=== PATIENT | female | born 1975 | race Caucasian/White ===

== ENCOUNTER 2019-03-26 10:37 | Outpatient (REF) | payer BC, SELFPAY ==
[2019-03-26 18:53] LABS: Iron 69 ug/dL (50-175)
[2019-03-26 18:55] LABS: HCT 39.8 % (36.0-46.0); HGB 12.7 g/dL (12.0-15.5); Mean Corp. HGB Concentration 31.9 g/dL (32.0-36.0); Mean Corpuscular Hemoglobin 29.9 pg (27.0-33.0); Mean Corpuscular Volume 93.6 fL (80-95); Mean Platelet Volume 9.9 fL (8.0-11.0); Platelet Count 250 x1000/uL (130-400); RBC 4.25 m/cumm (4.00-5.20); RBC Distribution Width 13.1 % (11.7-14.6); White Blood Cell Count 5.38 k/cumm (4.4-10.8)
[2019-03-26 19:20] LABS: Cholesterol 215 mg/dL (50-200); Ferritin 23 ng/mL (8-388); Folate 14.7 ng/mL (8.6-20.0); GGT 20 U/L (5-55); HDL Cholesterol 49 mg/dL (40-60); LDL CHOLESTEROL 143 mg/dL (<100); TSH 2.06 uIU/mL (0.358-3.74); Triglyceride 106 mg/dL (30-150); Vitamin B12 501 pg/mL (193-986)
[2019-03-26 20:44] LABS: ESR 20 MM/HR (0-20)
[2019-03-27 17:47] LABS: CRP, High Sensitivity 0.47 mg/L
== END 2019-03-26 10:57 ==
LOC: NCHCN 10:37
PROVIDERS: PCP Internal Medicine; Visit Provider Nurse Practitioner Family
DX: Z00.00 Encounter for general adult medical examination without abnormal findings (principal); F10.99 Alcohol use, unspecified with unspecified alcohol-induced disorder; N93.9 Abnormal uterine and vaginal bleeding, unspecified; M25.50 Pain in unspecified joint
CPT/HCPCS: 80061; 83721; 85027; 85652; 86141; 82607; 82728; 82746; 82977; 83540; 84443

== ENCOUNTER 2020-09-05 16:00 | Outpatient (REF) | payer BC, SELFPAY ==
--- NOTE | 2020-09-05 15:00 | PAPFT_PTH ---
PATIENT: Madhuri Garrett LOC: [facility] U#:[id number] AGE/SX: 44/F ROOM: RE09/05/[address]: LEILA Spencer : 1975 BED: DIS: 09/05/2020 SPEC #: [id number] RECD: 09/05/20 18:37 STATUS: SOUSacha REQ #: [id number] NEGAR: 09/05/20 15:[address]: Neelima Gary DEPT: [facility] Cytology RECD BY: Erica Paz ENTERED: 09/05/20 18:37 SP TYPE: PAPFT OTHR DR: Joey Perez Tissues: 1 - CX/ENDOCX FOR PAP SMEARS Procedures: PAP THIN PREP/UVM Screening HPV DNA PROBE Comments: [id number]
== END 2020-09-05 16:20 ==
LOC: LBN 16:00
PROVIDERS: PCP Internal Medicine; Visit Provider Nurse Practitioner Family
DX: Z12.4 Encounter for screening for malignant neoplasm of cervix (principal); Z11.51 Encounter for screening for human papillomavirus (HPV)
CPT/HCPCS: 88142; 87624

== ENCOUNTER 2020-09-12 01:16 | Outpatient (CLI) | payer BC, SELFPAY ==
--- NOTE | 2020-09-12 07:30 | DI.US_ITS ---
EXAM: US PELVIS TRANSVAGINAL CLINICAL HISTORY: Heavy periods - S/P endometrial ablation [id number],N92.0 TECHNIQUE: Transabdominal and transvaginal imaging was performed using standard protocol. COMPARISON: US PELVIS TRANSVAG from 06/20/2016 FINDINGS: KIDNEYS: Kidneys are symmetric in size. No evidence of renal calculi. No evidence of hydronephrosis. No renal mass or cyst identified. UTERUS: Anteverted. 8.1 x 4.7 x 5.3 cm Endometrium: 6 millimeters. Several endometrial cysts are noted. Myometrium: 2.8 centimeter anterior myometrial fibroid. scar. Cervix: Nabothian cysts. A small amount of fluid is seen in the cervical canal.. OVARIES: Right: Cyst or mass: None. Left: Status post left oophorectomy. . CUL-DE-SAC: Free fluid: None. IMPRESSION: 1. Small fibroid. Small endometrial cysts. 2. Unremarkable right ovary. DATA REPOSITORY:
== END 2020-09-12 01:36 ==
PROVIDERS: PCP Internal Medicine; Visit Provider Nurse Practitioner Family
DX: N92.0 Excessive and frequent menstruation with regular cycle (principal); D25.9 Leiomyoma of uterus, unspecified; N85.8 Other specified noninflammatory disorders of uterus
CPT/HCPCS: 76830; 76856

== ENCOUNTER 2020-09-26 02:19 | Outpatient (CLI) | payer BC, SELFPAY ==
--- NOTE | 2020-09-26 08:30 | DI.MAMMO_ITS ---
EXAM: MG MAMMO SCREENING CLINICAL HISTORY: screening,Z12.39 TECHNIQUE: Bilateral full field digital CC and MLO mammographic images were obtained with 3D tomosyn thesis and utilizing computer aided detection (CAD). COMPARISON: Available for comparison. FINDINGS: Masses/Architectural Distortion: There is an asymmetric density in the medial left breast on the CC v iew. This area should be further evaluated with a spot compression view and ultrasound. Microcalcifications: No suspicious pleomorphic-type are seen. Skin Thickening/Nipple Retraction: None. IMPRESSION: 1. New asymmetric density in the medial left breast on the CC view. 2. Spot compression view and ultrasound are recommended for further evaluation. BI-RADS Category 0 - Assessment Incomplete: Need additional imaging evaluation Breast Density - Category B - Scattered areas of fibroglandular density A negative radiographic report should not delay biopsy if a dominant or clinically suspicious mass is present. Up to ten percent of cancers are not identified on mammography. A negative report may reinforce clinical impression. Adenosis and dense breasts may obscure an underlying neoplasm. False positive reports average 6 to 10%. Patient will receive a letter notifying them of these results.
== END 2020-09-26 02:39 ==
PROVIDERS: PCP Internal Medicine; Visit Provider Nurse Practitioner Family
DX: Z12.31 Encounter for screening mammogram for malignant neoplasm of breast (principal); R92.8 Other abnormal and inconclusive findings on diagnostic imaging of breast
CPT/HCPCS: 77063; 77067

== ENCOUNTER 2020-09-28 01:16 | Outpatient (CLI) | payer BC, SELFPAY ==
--- NOTE | 2020-09-28 | DI.US_ITS ---
EXAM: MG MAMMO SCREEN CALL BACK UNI and U/S breast LT limited CLINICAL HISTORY: F/U MAMMO, LT ASYMMETRIC DENSITY. TECHNIQUE: Craniocaudal and mediolateral oblique Full Field Digital Mammography views of the left br east with Computer Aided Diagnosis followed by Tomosynthesis and left breast ultrasound. COMPARISON: No priors for comparison FINDINGS: Mammography/Tomosynthesis: Masses/Architectural Distortion: None seen. Microcalcifictions: No suspicious pleomorphic-type are seen. Skin Thickening/Nipple Retraction: None. Left breast US: Echotexture: Normal appearance of the glandular tissue. Shadowing: No suspicious foci. Cyst: None. Solid lesions: None seen. Ductal dilation: None. IMPRESSION: 1. No evidence of malignancy is noted. 2. A six-month follow-up left mammogram is recommended for re-evaluation. 3. The findings were discussed with the patient on the date of the examination. BI-RADS Category 3 - 6 month - Probably Benign Finding: Recommend follow-up mammography in 6 months Breast Density - Category B - Scattered areas of fibroglandular density A negative radiographic report should not delay biopsy if a dominant or clinically suspicious mass is present. Up to ten percent of cancers are not identified on mammography. A negative report may reinforce clinical impression. Adenosis and dense breasts may obscure an underlying neoplasm. False positive reports average 6 to 10%. Patient will receive a letter notifying them of these results.
== END 2020-09-28 01:36 ==
PROVIDERS: PCP Internal Medicine; Visit Provider Nurse Practitioner Family
DX: R92.8 Other abnormal and inconclusive findings on diagnostic imaging of breast (principal)
CPT/HCPCS: 76642; 77063; 77067

== ENCOUNTER 2020-10-24 02:30 | Outpatient (CLI) | payer BC, SELFPAY ==
[2020-10-26 07:44] LABS: COVID-19 RT-PCR Result NEGATIVE (Negative)
== END 2020-10-24 02:50 ==
PROVIDERS: PCP Internal Medicine; Visit Provider Obstetrics & Gynecology
DX: Z11.59 Encounter for screening for other viral diseases (principal); Z01.818 Encounter for other preprocedural examination
CPT/HCPCS: U0003

== ENCOUNTER 2020-10-24 03:44 | Outpatient (CLI) | payer BC, SELFPAY ==
[2020-10-24 13:44] LABS: HCT 38.9 % (36.0-46.0); HGB 12.5 g/dL (11.2-15.7); MCH 30.9 pg (27.0-33.0); MCHC 32.1 % (32.0-36.0); MCV 96.3 fL (80-95); MPV 9.2 fL (8.0-11.0); Platelet Count 256 10^3/uL (130-400); RBC 4.04 10^6/uL (3.93-5.22); RDW 12.6 % (11.7-14.6); WBC 6.63 10^3/uL (4.4-10.8)
== END 2020-10-24 04:04 ==
PROVIDERS: PCP Internal Medicine; Visit Provider Obstetrics & Gynecology
DX: N92.0 Excessive and frequent menstruation with regular cycle (principal); Z01.818 Encounter for other preprocedural examination; Z01.812 Encounter for preprocedural laboratory examination
CPT/HCPCS: 36415; 85027; 86850; 86900; 86901

== ENCOUNTER 2020-10-27 11:12 | Observation (INO) | payer BC, SELFPAY ==
[2020-10-27] VITALS (15 sets, daily range): BP systolic 84–115; BP diastolic 52–75; PULSE 56–92; RESP 11–20; TEMP 36.4–36.6; O2SAT 95–100
[2020-10-27] MEDS: Lactated Ringers 1,000 ML 125 ML IV ×2 (06:47→12:19)
[2020-10-27] MEDS: ceFAZolin 2 GM/50 ML BAG IVPB (07:56)
[2020-10-27] MEDS: Bupivacaine 0.25% Pres-Free 30 ML VIAL (09:06)
--- NOTE | 2020-10-27 10:24 | UTER_PTH ---
PATIENT: Madhuri Garrett LOC: [facility] U#:[id number] AGE/SX: 45/F ROOM: OBS.306 RE10/27/[address]: Sammie Lewis : 1975 BED: A DIS: 10/28/2020 SPEC #: [id number] RECD: 10/27/20 12:29 STATUS: TIGIST REQ #: [id number] NEGAR: 10/27/20 10:[address]: Sammie Lewis DEPT: Surgical Specimen RECD BY: Erica Paz ENTERED: 10/27/20 12:30 SP TYPE: UTER OTHR DR: Joey Perez Tissues: 1 - UTERUS W OR W/O OVARIES(NOT TUMOR/PROLAPSE) Procedures: GROSS AND MICRO LEVEL 5 Comments: [id number]
--- NOTE | 2020-10-27 11:40 | ROE_ITS ---
Date of service: 10/27/20 Time of Service: 11:40 Operative Note Operative Note DATE OF PROCEDURE: 10/27/20 PRE-OP DIAGNOSIS: abnormal uterine bleeding POST-OP DIAGNOSIS: same PROCEDURE: Laparoscopic assisted vaginal hysterectomy, right salpingectomy and bladder cystoscopy SURGEON: Sammie Lewis STAFFING ANALYST: Gale Carreon ANESTHESIA: GETA and spinal ESTIMATED BLOOD LOSS: 200 PATHOLOGY: other (uterus, cervix and R fallopian tube to pathology) COMPLICATIONS: None Patient was transported to: PACU Patient's condition: stable Indications: 44-year-old female with hx of abnormal uterine bleeding not responsive to previous medical and surgical measures. Pt had an unsuccessful endometrial ablation in 2012 and has required hormonal control of heavy regular menstruation. Findings: Uterus mobile. Pt had prior bilateral tubal ligation and absent left ovary and the majority of her left fallopian tube. R ovary normal in appearance. Upper abdomen, appendix and culdesac normal. Procedure Description: Patient was taken to the operating room where she was placed in the sitting position and spinal anesthesia was administered without difficulty. She was then placed in the dorsal supine position and general endotracheal anesthesia was administered. She was then placed in the dorsal lithotomy position in [facility] stirrups with SCDs in place. After being prepped and draped in the usual sterile fashion a surgical timeout was performed. She received 2 g of Ancef prior to skin incision. Durant catheter was placed to gravity drainage. A bivalve speculum was placed in the vagina the anterior lip of the cervix was grasped with a single-tooth tenaculum and a uterine manipulator was introduced into the uterus through the cervix and left in place. Attention was then turned to the patient's abdomen. The inferior umbilicus was infiltrated with quarter percent Marcaine without epinephrine. A scalpel was then used to make an vertical incision in the vertical fold. Two penetrating towel clips were used to tent up the skin and through the periumbilical incision a Veres needle was introduced into the abdomen and intra-abdominal placement confirmed by a drop in the intra-abdominal pressure. Once a pneumoperitoneum was established a 12 mm Visiport was placed under direct visualization and intra-abdominal placement confirmed by use of the laparoscope. Patient was then placed in Trendelenburg position. At two sites approximately 6 cm diagonally from the umbilical incision the skin was infiltrated with quarter percent Marcaine without epinephrine, incised with a scalpel and two 5 mm lower ports were placed under direct visualization. After careful inspection of the pelvis and determining that the course of both ureters were distant from the operative site a LigaSure electrocautery device was used to sequentally clamp, cauterize and incise the remnant of the fimbria of the left fallopian tube from from the pelvic side wall to which it was attatched. It was delivered through port. The left broad ligament was then sequentially clamped, cauterized and the both the left round ligament and ovarian suspensory ligament were transected and the pedicles noted to be hemostatic. The insertion of the left uterine artery/venous complex into the left lower uterine segment was clamped and cauterized in 3 contiguous locations. The Ligasure device was then used to incise the vesico-uterine peritoneum off of the lower uterine segment and retract the bladder away from the lower uterine segment. Attention was then turned to the fimbriated end of the right fallopian tube which was grasped, sequentially clamped, cauterized and transected. The right round ligament which was clamped, cauterized and transected with the Ligasure device. This allowed access to the ovarian suspensory ligament and remaining broad ligament which were clamped, cauterized and transected in a sequential fashion. The uterine vessel complex insertions at the lower uterine segement were easily cauterized and the vesicouterine peritoneum was incised across the lower uterine segment and the bladder flap dissected off of the the lower uterine segement. All pedicle sights were inspected and noted to be hemostatic. Decision was made to proceed with the vaginal portion of the case. Laparoscopic instruments were removed from the ports , the pneumoperitoneum was reduced, and the area was covered with sterile drape. A weighted vaginal speculum was placed in the vagina and the anterior posterior lips of the cervix were grasped with Avtar clamps. The body of the cervix was infiltrated with 1% lidocaine with dilute Epinphrine The epithelium of the cervix was incised in a circumferential fashion using Bovie electrocautery. The posterior cul-de-sac was entered sharply and through the incision a long billed weighted speculum was placed. The left and right uterosacral ligament complexes were clamped,transected, and suture-ligated which was held long. This allowed sufficient mobilization of the vesicouterine fascia to identify a tissue plane and enter the anterior cul-de-sac sharply. Through this incision a curved Jana retractor was inserted and used to retract bladder away from the operative field. The remaining right and left broad ligament attatchments were sequentially clamped, cauterized, and transected and the specimen was delivered and passed off of the operative field. The peritoneum was reapproximated with a pursestring suture using 2-0 Vicryl and the vaginal cuff was reapproximated in a vertical fashion with a running suture of 0 Vicryl with care taken to reapproximate the uterosacral ligament complex to the vaginal epithelium with the previously placed 0 Vicryl sutures. Bladder cystoscopy was performed and brisk efflux of urine was observed from each of the ureteral orifices. The Durant catheter was reinserted to gravity drainage. Instruments removed from the vagina and attention was again turned to the abdomen where a pneumoperitoneum was reestablished and the pelvis inspected using the laparoscope. The vaginal cuff was intact and hemostatic as were the other pedicles. The instruments were removed from the port sites, the pneumoperitoneum deflated and the ports removed. The fascia of the periumbilical skin incision was closed with interrupted suture of 0 Vicryl. The skin of the port site incisions were reapproximated with a subcuticular closure of 4-0 Vicry and and covered with skin glue. Patient was placed in the dorsal supine position awakened extubated and transported recovery area in stable condition. All sponge lap needle counts correct x2.
[2020-10-27] MEDS: diphenhydrAMINE 50 MG/ML VIAL 12.5 MG IVP (12:18)
[2020-10-27] MEDS: NALBUPHINE 5 MG in Normal Saline 50 ML 100 MG IVPB ×3 (13:45→21:53)
[2020-10-27] MEDS: Normal Saline Flush 10 ML SYR IV (15:58)
[2020-10-27] MEDS: Ketorolac 30 MG/ML VIAL IVP ×2 (15:59→21:45)
[2020-10-27] MEDS: Docusate Sodium 100 MG CAP PO (21:45)
[2020-10-28] MEDS: Lactated Ringers 1,000 ML 125 ML IV (00:03)
[2020-10-28 00:11] VITALS: BP 109/56; PULSE 64; RESP 18; TEMP 36.6
[2020-10-28] MEDS: diphenhydrAMINE 25 MG CAP PO (03:30)
[2020-10-28] MEDS: Ketorolac 30 MG/ML VIAL IVP (03:30)
[2020-10-28] MEDS: NALBUPHINE 5 MG in Normal Saline 50 ML 100 MG IVPB (03:31)
[2020-10-28] MEDS: Normal Saline Flush 10 ML SYR IV (03:37)
[2020-10-28 03:52] VITALS: BP 104/64; PULSE 58; RESP 16; TEMP 36.3; O2SAT 93
[2020-10-28 07:11] VITALS: BP 93/54; PULSE 72; RESP 16; TEMP 36.6; O2SAT 93
[2020-10-28] MEDS: Docusate Sodium 100 MG CAP PO (08:13)
[2020-10-28] MEDS: Acetaminophen 325 MG TAB 650 MG PO (09:03)
[2020-10-28] MEDS: Ibuprofen 600 MG TAB PO (09:34)
[2020-10-28 11:34] VITALS: BP 103/63; PULSE 61; RESP 18; TEMP 36.7; O2SAT 97
--- NOTE | 2020-10-28 12:53 | DSE_ITS ---
Date of service: 10/28/20 Time of Service: 12:53 DS: Diagnosis Discharge Diagnosis (1) Menorrhagia: Status: Acute (2) History of laparoscopic-assisted vaginal hysterectomy: Status: Acute Discharge Plan Disposition Patient Disposition: HOME Condition: Improving Discharge Details Reason For Visit: LAPAROSCOPIC VAGINAL HYSTERECTOMY Admit Date/Time: 10/27/20 11:12 Admit Provider: Sammie Lewis Attending Provider: Sammie Lewis Primary Care Provider: Joey Perez [facility] Course Hospital Course: Patient admitted the day of surgery and underwent the above stated procedure. She was discharged on POD 1 tolerating a regular diet, voiding without difficulty and tolerating oral pain medications. Pt will follow up for 2 week postop check in 2 weeks. Final path pending at the time of this dictation. Home Meds and New Rx's Prescriptions: No Action turmeric 400 mg capsule 400 mg PO DAILY RF: 0 multivitamin [Daily Multi-Vitamin] Tablet 1 tab PO DAILY RF: 0 fluconazole [Diflucan] 150 mg tablet 150 mg PO ONCE Qty: 2 RF: 2 ascorbic acid-elderberry fruit [Airborne (elderberry)] 100-50 mg tablet,chew able 1 tab PO DAILY RF: 0 Elderberry 200 mg Capsule 200 mg PO DAILY RF: 0 Discharge Instructions Additional Instructions: make an appointment for a 2 week post op visit with Dr. Lewis. Activity:: Activity as Tolerated Equipment/Supplies:: No Equipment Needed Diet:: As Tolerated Discharge Orders Discharge Orders: Discharge Order (Routine); Ordered 10/28/20 Ordered By: Sammie Lewis DS: Summary Status at Discharge Functional status at discharge: independent ambulation Overall status at discharge: patient is progressing back to baseline Mental Status: mental status grossly normal Speech and Movement: speech and movement normal Mood: congruent mood Affect: normal affect Exam Const General: no acute distress (has been taken NSAIDs and Acetaminophen for pain relief. ) Nutritional Appearance: average body habitus and overweight Orientation: alert, awake and oriented x3 Neck Neck: normal visual inspection Resp Effort & Inspection: normal respiratory effort Auscultation: clear to auscultation bilaterally Cardio Rate: regular rate Rhythm: regular rhythm GI Inspection: scar (Well approximated no induration skin glue in place) Palpation: soft, no masses and nontender General: deferred Skin General skin exam: no rashes or lesions noted Extrem General: normal to inspection and full ROM Psych Appearance: grossly normal Mental Status: mental status grossly normal Speech and Movement: speech and movement normal Mood: congruent mood Affect: normal affect DS: Data Vitals/I&O Vitals and I&O: Vital Signs Temperature 98.1 F 10/28/20 11:34 Temperature Source Oral 10/28/20 11:34 Pulse 61 10/28/20 11:34 Pulse Rhythm Regular 10/28/20 07:20 Respiratory Rate 18 10/28/20 11:34 Respiratory Effort 10/28/20 07:20 Respiratory Depth Normal 10/28/20 07:20 Respiratory Pattern Normal 10/28/20 07:20 Blood Pressure 103/63 10/28/20 11:34 Pulse Oximetry 97 10/28/20 11:34 Respiratory End-tidal CO2 36 10/27/20 10:57 Oxygen Delivery Method Room Air 10/28/20 11:34 Oxygen Flow Rate 0 10/28/20 11:34 Pain Level 1 10/28/20 11:34 Comment 10/28/20 07:11 Intake & Output 10/27/20 10/28/20 10/28/20 23:59 11:59 23:59 Intake Total 3699.833 / 3766.500 1980.5 / 3220.5 1240 / 3220.5 Output Total 1750 / 1750 900 / 900 Balance 1949.833 / 2016.500 1080.5 / 2320.5 1240 / 2320.5 Intake: IV 2299.833 / 2366.500 1070.5 / 2070.5 1000 / 2070.5 Oral 1400 / 1400 910 / 1150 240 / 1150 Output: Urine 1750 / 1750 900 / 900 Other: Urine Color Indigo Green Urine Appearance Clear Clots Urine Odor None Normal Comment scattered clots mixed with urine in hat. Pt reports no difficulty voiding. First void after pedraza removal. Voiding Methods Indwelling Catheter Toilet [facility] Medical History GERD (gastroesophageal reflux disease) Menorrhagia After of 2nd child. No relief with OCPs. Declines Mirena. Surgical History (Updated 10/28/20 @ 12:55 by Sammie Lewis MD) section Endometrial Ablation (~2012) History of laparoscopic-assisted vaginal hysterectomy 10/27/20. with L salpingecomy. L ovary conserved. Ligation of fallopian tube Oophrectomy, Left Family History Grandfather Colon cancer paternal Father Heart disease Grandfather No problems noted. Grandmother Breast cancer Maternal Maternal Uncle Collins syndrome paternal Grandfather No problems noted. Social History Smoking/Tobacco Use Status: Current-Occasional Tobacco Type: cigarettes Smoking risk assessment performed?: Yes Alcohol Intake: current Alcohol Intake frequency: a few times a week Alcohol type: beer and wine Drug use: Occasionally Substance use type: marijuana Do you feel safe at home: Yes Do you feel safe in your relationship?: Yes
--- NOTE | 2020-10-28 13:22 | NUR.NOTE ---
Nursing Note: 10/28/20 1322 Pt c/o blurred vision up close, no headache, reported to MD. Scopolomine patch removed per MD. Pt in agreement with plan of care.
== END 2020-10-28 13:30 | disposition home or self-care (01) ==
LOC: OBS 11:29
PROVIDERS: Admitting Provider Obstetrics & Gynecology Gynecology; PCP Internal Medicine; Visit Provider Obstetrics & Gynecology Gynecology
PROC: 0UT9FZZ Resection of Uterus, Via Natural or Artificial Opening With Percutaneous Endoscopic Assistance (ICD-10-PCS; CPT 58552; principal; 2020-10-27 07:30)
DX: D25.1 Intramural leiomyoma of uterus (principal); N92.0 Excessive and frequent menstruation with regular cycle; N72 Inflammatory disease of cervix uteri
CPT/HCPCS: 58552; 52000; 96360; 96361; NC; 88307; G0378; J0690; J1100; J1200; J1885; J2001; J2250; J2405; J2704; J3010; J3490

== ENCOUNTER 2020-11-10 10:40 | Outpatient (CLI) | payer BC, SELFPAY ==
--- NOTE | 2020-11-10 08:15 | DI.CT_ITS ---
EXAM: CT ABDOMEN PELVIS W CLINICAL HISTORY: persistent fever postop, s/p hysterectomy, Z90.710, R50.82. TECHNIQUE: Imaging Protocol: Axial computed tomography images with coronal and sagittal reformatted images were created and reviewed CONTRAST MATERIAL: Intravenous: Omnipaque 100cc Oral: Yes COMPARISON: No exams were available for comparison FINDINGS: VISUALIZED LUNG BASES: No nodules nor pleural effusions evident. ABDOMEN: There is no ascites. LIVER: There are no obvious focal hepatic lesions evident . GALLBLADDER/BILIARY: Subtle density gallbladder lumen noted, possibly noncalcified gallstone. There also appears to be mild edema of the fundus of the gallbladder. The CBD is not dilated. PANCREAS: No evidence of pancreatic mass nor dilatation of the pancreatic duct. SPLEEN: Spleen size is upper normal. No obvious splenic lesions. Splenic and portal veins are paten t. ADRENALS: There are no significant adrenal masses. KIDNEYS: No calculi nor hydronephrosis. No solid renal masses. No cysts evident. ABDOMINAL AORTA: Abdominal aorta is not enlarged and there is no uvodmqrxgfxkqqo-tiax-gnosnp adenopat hy. ABDOMINAL WALL/GI: No evidence of significant anterior abdominal wall hernia. No bowel obstruction. PELVIS: GI: No evidence of appendicitis.No evidence of sigmoid diverticulitis. LYMPH NODES: There is no intrapelvic nor inguinal adenopathy. REPRODUCTIVE: Uterus is surgically absent. There is an abnormal fluid collection in the pelvis, both central and left-sided. This measures appr oximately 6.5 centimetres wide by 2.3 centimetres AP by 5 centimetres cephalocaudal. Consistent with an abscess. Does not contain gas. It sits on top of the right side of the urinary bladder. There is no gas within the urinary bladder to suggest fistulous communication. In the central pelvis there is a separate adjacent finding measuring 3.5 centimeters wide by 2.3 centimetres AP by 2.2 centimetr es cephalocaudal, probably hematoma. Does not exhibit enhancing rim. Nevertheless, this may be a se parate adjacent abscess. URINARY BLADDER: No calculi nor obvious masses evident no gas therein. OSSEOUS: No significant osseous lesions. IMPRESSION: 1. Uterus is surgically absent. 2. There is a rim enhancing fluid collection in the central-left side of the pelvis, measuring 6.5 ce ntimeters wide by 2.3 centimeters AP x 5 centimetres cephalocaudal, having the appearance of an absce ss. A 2nd finding adjacent to this is also noted measuring 3.5 x 2.3 x 2.2 centimetres and not perip herally enhancing. This may represent hematoma versus developing abscess. 3. No evidence of obvious fistulous communication to the urinary bladder. RADIATION DOSE DELIVERED: 1,005.07mGy.cm Total DLP DATA REPOSITORY: All CT scans at this facility are submitted to the National Radiology Data Registry (NRDR) Dose Index Registry (DIR) with the [employer] (A[employer]). RADIATION OPTIMIZATION: All CT scans at this facility use at least one of these dose optimization te chniques: automated exposure control; mA and/or kV adjustment per patient size (includes targeted exa ms where dose is matched to clinical indication); or iterative reconstruction.
[2020-11-10 12:39] LABS: Abs Immature Grans 0.09 10^3/uL (0.0-0.06); Absolute Basophil Count 0.01 10^3/uL (0.0-0.2); Absolute Eosinophil Count 0.07 10^3/uL (0.0-0.7); Absolute Lymphocyte Count 1.34 10^3/uL (1.2-3.4); Absolute Monocyte Count 0.55 10^3/uL (0.1-0.8); Basophils % 0.1; Eosinophils % 0.8; HCT 29.2 % (36.0-46.0); HGB 9.2 g/dL (11.2-15.7); Lymphocytes % 15.1; MCHC 31.5 % (32.0-36.0); MCV 95.1 fL (80-95); MPV 8.6 fL (8.0-11.0); Monocytes % 6.2; Neutrophils % 76.8; Nucleated RBC 0 %; Platelet Count 432 10^3/uL (130-400); RBC 3.07 10^6/uL (3.93-5.22); RDW 12.3 % (11.7-14.6); WBC 8.86 10^3/uL (4.4-10.8)
[2020-11-10] MEDS: Omnipaque 350 MG/ML 50 ML BTL IJ (12:49)
[2020-11-10] MEDS: Breeza Beverage 473 ML BTL PO ×2 (12:50)
[2020-11-10 12:52] LABS: ALT 20 U/L (14-59); AST 13 U/L (15-37); Alkaline Phosphatase 98 U/L (46-116); Anion Gap 9.2 mmol/L (3-11); BUN 14 mg/dL (7-18); Bilirubin, Total 0.3 mg/dL (0.2-1.0); CO2 26.8 mmol/L (21.0-32.0); CREATININE 0.86 mg/dL (0.55-1.02); Calcium 8.8 mg/dL (8.5-10.1); Chloride 101 mmol/L (98-107); Glucose 102 mg/dL (74-106); Potassium 3.8 mmol/L (3.5-5.1); Sodium 137 mmol/L (136-145); Total Protein 7.2 g/dL (6.4-8.2)
[2020-11-10] MEDS: Normal Saline - Diluent 50 ML VIAL IV (14:01)
[2020-11-10] MEDS: Omnipaque 350 MG/ML 100 ML BTL IJ (14:01)
[2020-11-10] MEDS: Normal Saline Flush 10 ML SYR IVP (14:02)
== END 2020-11-10 11:00 ==
PROVIDERS: PCP Internal Medicine; Visit Provider Obstetrics & Gynecology Gynecology
DX: R50.82 Postprocedural fever (principal); Z90.710 Acquired absence of both cervix and uterus
CPT/HCPCS: 80053; 74177; 85025; J3490; Q9967

== ENCOUNTER 2021-06-05 07:08 | Day surgery (SDC) | payer BC, SELFPAY ==
--- NOTE | 2021-06-05 06:27 | W.COLOREPORT ---
Date of service: 06/05/21 Time of Service: 08:25 Colonoscopy Report Date of procedure: 06/05/21 Pre-op diagnosis general: Colon Cancer Screening Post-op diagnosis procedure note: other (sigmoid polyp) Procedure: Colonoscopy with polypectomy Surgeon: Dorinda Barroso Anesthesia Type: General:No Airway (ASA 2/ Lashon Booth CRNA) Estimated blood loss (mL): 2 Pathology: other (sigmoid polyp) Complications: None Disposition: same day Indications: The patient is here for Colonoscopy pre-op.She has family history of colon cancer in her paternal grandfather and numerous family members on her fathers side including her father have had numerous polyps. She has not had any bowel habit changes. -Discussed colonoscopy bowel prep as well as the procedure. Discussed possible complications of the procedure to include bleeding, pain, perforation, missed small lesion/polyp, sore throat, aspiration and adverse reaction to the medications. Questions were answered to patient?s satisfaction. No guarantees were implied or given. Prep: Miralax/Dulcolax Procedure Start Time: :25 Procedure End Time: 08:45 Retraction Time: 15 minutes Findings: One small <5 mm polyp Procedure Description: After informed consent was obtained the patient was taken to the procedure room and placed in a left decubitous position. Monitors were applied and a time out was done. The patients name, date of , procedure, allergies to medications and metal in their body was reviewed. The patient was then sedated. Once sedated and comfortable a rectal exam was done. External exam was normal. Internal exam revealed a normal sphincter tone and no palpable masses. The scope was then introduced and retro-flexed. No internal hemorrhoids, polyps or masses were identified on retro-flexion. The scope was then advanced to the cecum without difficulty. The ileocecal vlave and appendiceal orifice were identified. The prep was adequate. The scope was then slowly retracted over 15 minutes back into the rectum. Polyps were removed with cold forceps in the sigmoid colon. There was no diverticulosis noted. The scope was removed and the patient was woken up and taken back to Same day surgery in stable condition. The patient tolerated the procedure well and there were no immediate complications. Follow up: The patient should follow up in 5-10 years unless they develop changes in bowel habits or other new gastrointestinal complaints.
--- NOTE | 2021-06-05 06:28 | W.PM.DSUDISC ---
Discharge Plan Disposition Patient Disposition: HOME Condition: Good Discharge Details Reason For Visit: Colonoscopy Attending Provider: Dorinda Barroso Primary Care Provider: Joey Perez Home Meds and New Rx's Prescriptions: Continued turmeric 400 mg capsule 400 mg PO DAILY RF: 0 multivitamin [Daily Multi-Vitamin] Tablet 1 tab PO DAILY RF: 0 ascorbic acid-elderberry fruit [Airborne (elderberry)] 100-50 mg tablet,chewable 1 tab PO DAILY RF: 0 elderberry fruit 200 mg Capsule 200 mg PO DAILY RF: 0 Discharge Instructions Additional Instructions: Findings: one very small polyp Follow up: depends on the pathology results. You will receive a letter in the mail in about 10 days Please call if you develop: fevers >101.5 Nausea or Vomiting Abdominal pain that is not transient Rectal bleeding that is more then a tbsp A hard abdomen and inability to pass gas DAY SURGERY UNIT POST ENDOSCOPY INSTRUCTIONS Instructions for everyone who is given Anesthesia: For your safety, please do the following for the next 24 Hours: a. Do not drive or operate dangerous equipment b. Do not drink alcohol beverages or use any recreational drugs for the first 24 hours or while taking pain medications. The medications in your body may have a reaction that can be dangerous. c. Do not make any important decisions or sign any important papers 1. Generally there are no restrictions on your activity after a day or so has gone by, but you may feel a bit fatigued for a few days. 2. After you arrive home you may have a light meal and return to a normal diet as you can tolerate it without feeling sick to your stomach. 3. After surgery, you may feel pain or discomfort. This should be only transient, but if it persists please contact your doctor. 4. If there are any questions regarding the findings of your procedure, please feel free to contact your doctor. 6. If you are unable to contact your doctor with a problem, contact the hospital at [phone]. 7. Continue all your regular medications unless directed otherwise. I understand the above instructions and have no questions. Signature of Patient or Responsible Adult Escort Date/Time Name of Responsible Adult Escort Signature of Nurse Date/Time Activity:: Activity as Tolerated Diet:: As Tolerated Discharge Orders Discharge Orders: Discharge Order (Routine); Ordered 06/05/21 Ordered By: Dorinda Barroso
[2021-06-05 07:21] VITALS: BP 114/73; PULSE 60; RESP 17; TEMP 36.4; O2SAT 98
--- NOTE | 2021-06-05 07:44 | W.ANESPRE ---
General Info Date of Service Date Performed: 06/05/21 Height: 5 ft 5 in Weight: 80 kg Body Mass Index (BMI): 29.3 Surgical Procedure: Operation Date: 06/05/21 08:20 Proposed Procedures Side Surgeon p Colonoscopy Dorinda Barroso MD Meds Allergies and Home Medications Allergies Allergy/AdvReac Type Severity Reaction Status Date / Time No Known Allergies Allergy Verified 06/05/21 07:18 Home Medication Medication Instructions Recorded multivitamin 1 tab PO DAILY 09/05/20 turmeric 400 mg capsule 400 mg PO DAILY 09/05/20 ascorbic acid 100 mg-elderberry 1 tab PO DAILY 10/13/20 fruit 50 mg chewable tablet elderberry fruit [Elderberry] 200 mg PO DAILY 10/27/20 Current Visit Medications: Current Medications Generic Name Dose Route Start Last Admin Trade Name Freq PRN Reason Stop Dose Admin Hyoscyamine Sulfate 0.125 mg 06/05/21 06:29 Hyoscyamine 0.125 Mg Sl/Oral/Chew SL DIRECTED PRN Ringer's Solution 1,000 mls @ 80 mls/hr 06/05/21 06:00 IV 06/05/21 23:59 [facility] IV Miscellaneous Supplies 1 each 06/05/21 06:00 Iv Access IV 06/05/21 23:59 DIRECTED TRINI Ondansetron HCl 4 mg 06/05/21 06:29 Ondansetron 4 Mg/2 Ml Vial IVP Q4H PRN PRN Nausea / Vomiting Sodium Chloride 0 ml 06/05/21 06:00 Normal Saline Flush 10 Ml Syr IV 06/05/21 23:59 PRN PRN Sodium Chloride 0 ml 06/05/21 06:00 Normal Saline 10 Ml Vial IJ 06/05/21 23:59 DIRECTED PRN Sterile Water 0 ml 06/05/21 06:00 Water,Injection,Sterile 10 Ml Vial IJ 06/05/21 23:59 DIRECTED PRN PFSH Active Problems Active Problems: Problem Status Onset Code Encounter for change or removal of drains Z48.03 Pelvic abscess in female N73.9 Postsurgical fever R50.82 History of laparoscopic-assisted vaginal hysterectomy Z90.710 Abnormal mammogram of left breast R92.8 Menorrhagia N92.0 Medical History Medical History GERD (gastroesophageal reflux disease) Menorrhagia After of 1nd child. No relief with OCPs. Declines Mirena. Pelvic abscess in female Postsurgical fever Surgical History Surgical History section Endometrial Ablation (~2012) History of laparoscopic-assisted vaginal hysterectomy 10/27/20. with L salpingecomy. L ovary conserved. Ligation of fallopian tube Oophrectomy, Left Tobacco Smoking/Tobacco Use Status: Former Tobacco Use Alcohol Alcohol Intake: current Alcohol intake frequency: a few times a week Alcohol type: beer and wine Substance Use Substance use: Occasionally Substance use type: marijuana Vital Signs and Lab Results Vital Signs Most Recent Vital Signs in EMR: Most Recent Vital Signs Temp Pulse Resp BP Pulse Ox 36.4 C L 60 17 114/73 98 06/05/21 07:21 06/05/21 07:21 06/05/21 07:21 06/05/21 07:21 06/05/21 07:21 Lab Results Blood Type / Crossmatch: No Data to Display Complete Blood Count: No Data to Display Complete Metabolic Panel: No Data to Display Liver Function Panel: No Data to Display Coagulation Panel: No Data to Display Cardiac Panel: No Data to Display Arterial Blood Gas: No Data to Display Venous Blood Gas: No Data to Display Pancreas Panel: No Data to Display Thyroid Panel: No Data to Display Infectious Disease: No Data to Display Blood Cultures: No Data to Display Toxicology Panel: No Data to Display Panel: No Data to Display Anesthesia Assessment and Plan Anesthesia History Personal History: No History of Anesthesia Complications Family History: No Family History of Anesthesia Complications Exercise Tolerance Exercise Tolerance: Metabolic Equivalents>4 Pertinent Negatives Pertinent Negatives: No Symptoms of GERD Cardiac & Pulmonary Exam Cardiac Exam: Normal S1/S2 Heart Sounds Pulmonary Exam: Clear Bilateral Breath Sounds Airway Exam Known Difficult Airway: No Mallampati Class: 2 Mouth Opening: Normal (> 3cm) Thyromental Distance: Greater than 3 cm Neck Range of Motion: Full ROM Neck Circumference: Normal Teeth Condition: Normal Dentition ASA Classification ASA Score: ASA 2 Emergency Case?: No NPO Status NPO Status: NPO Clears >2 hours, Solids >8 hours Status Status: History of Hysterectomy Anesthesia Plan Resuscitation Status: Full Code Anesthesia Technique: General Anesthesia Airway Planned: Natural Airway Monitors Used: Standard Monitors
[2021-06-05] MEDS: Lactated Ringers 1,000 ML 80 ML IV (07:45)
[2021-06-05 08:08] VITALS: BMI 29.3
--- NOTE | 2021-06-05 08:44 | BOWEL_PTH ---
PATIENT: Madhuri Garrett LOC: [facility] U#:[id number] AGE/SX: 45/F ROOM: RE06/05/[address]: Dorinda Barorso MD : 1975 BED: DIS: 06/05/2021 SPEC #: [id number] RECD: 06/05/21 12:17 STATUS: TIGIST REQ #: [id number] NEGAR: 06/05/21 08:[address]: Dorinda Barroso DEPT: Surgical Specimen RECD BY: Erica Paz ENTERED: 06/05/21 12:17 SP TYPE: Bowel OTHR DR: Joey Perez Tissues: 1 - BIOPSY BOWEL Procedures: GROSS AND MICRO LEVEL 4 Comments: [id number]
[2021-06-05 08:51] VITALS: BP 97/51; PULSE 66; RESP 20; TEMP 36.3; O2SAT 96
--- NOTE | 2021-06-05 09:14 | W.ANESPOSTOP ---
Postoperative Evaluation Date, Time and Location Date Performed: 06/05/21 Time Performed: 08:53 Patient Location: Day Surgery Unit Vital Signs Most Recent Imported Vital Signs: Most Recent Vital Signs Temp Pulse Resp BP Pulse Ox 36.3 C L 66 20 97/51 L 96 06/05/21 08:51 06/05/21 08:51 06/05/21 08:51 06/05/21 08:51 06/05/21 08:51 Pain Score Most Recent Pain Score: Most Recent Pain Score Pain Level 0 06/05/21 08:51 Assessment Mental Status: Awake (Alert & Oriented to Patient Baseline) Airway and Respiratory Function: Patent airway with normal (patient baseline) respiratory exam Cardiovascular Function: Hemodynamically Stable Hydration Status: Adequately Hydrated Nausea & Vomiting: No Nausea or Vomiting Pain: Pt. Denies Any Pain Peripheral Nerve Block: Patient did not receive a nerve block
[2021-06-05 09:23] VITALS: BP 113/71; PULSE 67; RESP 16; TEMP 36.2; O2SAT 100
== END 2021-06-05 09:50 | disposition home or self-care (01) ==
PROVIDERS: PCP Internal Medicine; Visit Provider Surgery
PROC: 0DJD8ZZ Inspection of Lower Intestinal Tract, Via Natural or Artificial Opening Endoscopic (ICD-10-PCS; CPT 45378; principal; 2021-06-05 08:15)
DX: Z12.11 Encounter for screening for malignant neoplasm of colon (principal); K63.5 Polyp of colon; Z80.0 Family history of malignant neoplasm of digestive organs; Z83.71 Family history of colonic polyps
CPT/HCPCS: 45380; 88305; J2001; J2704

== ENCOUNTER 2021-07-03 02:06 | Outpatient (CLI) | payer BC, SELFPAY ==
--- NOTE | 2021-07-03 07:30 | DI.CT_ITS ---
Exam(s) CT ABDOMEN PELVIS W EXAM: CT ABDOMEN PELVIS W CLINICAL HISTORY: LT flank pain with cough and deep breath,R10.9. TECHNIQUE: Imaging Protocol: Axial computed tomography images with coronal and sagittal reformatted images were created and reviewed CONTRAST MATERIAL: Intravenous: Omnipaque 350 Contrast volume:100 ml Oral: / no COMPARISON: CT CT ABDOMEN PELVIS W from 11/10/2020 FINDINGS: ABDOMEN: Lung Bases: Normal where visualized. No pleural effusion. Liver: Normal density. No measurable mass. Gallbladder and biliary tract: Gallstones. No biliary dilation. Pancreas: Normal density, no abnormal calcifications or inflammatory process. Spleen: 11.5 x 9 by 5.36 cm circumscribed fluid collection beneath the left diaphragm, lateral to the spleen. No air bubbles. The splenic flexure of the colon lies directly beneath this area. The spl een is deviated toward the midline but otherwise appears normal. This was not present on the previou s study. Kidneys: Normal size, contour and axis. No radiodense stones or obstructive uropathy. No masses seen. Adrenal glands: No masses seen. Abdominal Aorta: Abdominal portion non-dilated. PELVIS: Bladder: No gross wall thickening. No calculi.No focal mass. Bowel: Normal quantity of stool. No obstruction or bowel wall thickening. Appendix normal. Peritoneal cavity: No ascites,, free air or mesenteric inflammatory response. Bones: Within normal limits for age. Reproductive organs: Status post hysterectomy. Lymph nodes: Unremarkable. Impression: 11.5cm circumscribed fluid collection lateral to the spleen. The bowel is unremarkable. RADIATION DOSE DELIVERED: 1,231.47mGy.cm Total DLP DATA REPOSITORY: All CT scans at this facility are submitted to the National Radiology Data Registry (NRDR) Dose Index Registry (DIR) with the [employer] (ACR). RADIATION OPTIMIZATION: All CT scans at this facility use at least one of these dose optimization te chniques: automated exposure control; mA and/or kV adjustment per patient size (includes targeted exa ms where dose is matched to clinical indication); or iterative reconstruction.
[2021-07-03] MEDS: Breeza Beverage 473 ML BTL PO (08:59)
[2021-07-03] MEDS: Omnipaque 350 MG/ML 100 ML BTL IJ (10:26)
[2021-07-03] MEDS: Normal Saline - Diluent 50 ML VIAL IV (10:26)
[2021-07-03] MEDS: Normal Saline Flush 10 ML SYR IVP (10:28)
== END 2021-07-03 02:26 ==
PROVIDERS: PCP Internal Medicine; Visit Provider Surgery
DX: D73.89 Other diseases of spleen; R10.9 Unspecified abdominal pain; R05 Cough
CPT/HCPCS: 74177; J3490

== ENCOUNTER 2021-07-07 14:08 | Outpatient (REF) | payer BC, SELFPAY ==
[2021-07-07 18:47] LABS: Abs Immature Grans 0.02 10^3/uL (0.0-0.06); Absolute Basophil Count 0.03 10^3/uL (0.0-0.2); Absolute Eosinophil Count 0.11 10^3/uL (0.0-0.7); Absolute Lymphocyte Count 1.46 10^3/uL (1.2-3.4); Absolute Monocyte Count 0.52 10^3/uL (0.1-0.8); Absolute Neutrophil Count 3.76 10^3/uL (1.2-6.7); Basophils % 0.5; Eosinophils % 1.9; HCT 37.1 % (36.0-46.0); HGB 11.9 g/dL (11.2-15.7); Immature Grans % 0.3; Lymphocytes % 24.7; MCH 30.3 pg (27.0-33.0); MCHC 32.1 % (32.0-36.0); MCV 94.4 fL (80-95); MPV 9.5 fL (8.0-11.0); Monocytes % 8.8; Neutrophils % 63.8; Nucleated RBC 0 %; Platelet Count 271 10^3/uL (130-400); RBC 3.93 10^6/uL (3.93-5.22); RDW 12.5 % (11.7-14.6); RDW-SD 43.7 fL
[2021-07-07 19:20] LABS: C-Reactive Protein 0.11 mg/dL (0.0-0.3)
[2021-07-07 19:43] LABS: ESR 10 mm/hr (0-20)
== END 2021-07-07 14:09 | disposition home or self-care (01) ==
LOC: NCHCN 14:08
PROVIDERS: PCP Internal Medicine; Visit Provider Internal Medicine
DX: D73.5 Infarction of spleen (principal)
CPT/HCPCS: 85652; 85025; 86140

== ENCOUNTER 2022-04-11 01:34 | Outpatient (CLI) | payer BC, SELFPAY ==
--- NOTE | 2022-04-11 11:00 | DI.MAMMO_ITS ---
Exam(s) MAMMO SCREENING EXAM: MAMMO SCREENING CLINICAL HISTORY: screening. TECHNIQUE: Bilateral full field digital CC and MLO mammographic images were obtained with 3D tomosyn thesis and utilizing computer aided detection (CAD). COMPARISON: Prior mammograms were reviewed, the most recent being September 2020. Prior ultrasound examination September 2020 was also reviewed FINDINGS: The previously described asymmetric density in the anterior medial aspect of the left breast has decr eased in size when compared to the prior study, further evidence that it is benign. There are no malignant-appearing microcalcification groups in this region or elsewhere in either [address]. In the opposite-right breast there is a 6 x 4 millimeter asymmetric density located 4 cm in from the nipple on the MLO view and also 4 cm in from the nipple on the CC view. There is another nodule post erior to this. These are most probably benign findings given that they are unchanged from February 2018 and September 2020. No new architectural distortion or skin thickening-traction. IMPRESSION: Stable benign findings. No radiographic evidence of malignancy. BI-RADS Category 2 - Benign Findings Breast Density - Category B - Scattered areas of fibroglandular density Breast density Category C or D implies that the patient has dense breast tissue. Dense breast tissue can make it harder to find cancer on a mammogram. Dense breast tissue is also associated with an incr eased risk of breast cancer. This information about the result of the mammogram report was provided to the patient to raise their awareness. Use this report when you speak with the patient about their risks for breast cancer, which includes their family history. At that time, you may recommend additional screening tests (Ultrasoun d or MRI) as these tests may add significant information. A negative radiographic report should not delay biopsy if a dominant or clinically suspicious mass is present. Up to ten percent of cancers are not identified on mammography. A negative report may reinforce clinical impression. Adenosis and dense breasts may obscure an underlying neoplasm. False positive reports average 6 to 10%. Patient will receive a letter notifying them of these results.
== END 2022-04-11 01:54 ==
PROVIDERS: PCP Internal Medicine; Visit Provider Obstetrics & Gynecology Gynecology
DX: Z12.39 Encounter for other screening for malignant neoplasm of breast (principal); N60.81 Other benign mammary dysplasias of right breast; N60.82 Other benign mammary dysplasias of left breast
CPT/HCPCS: 77063; 77067

== ENCOUNTER 2023-12-05 15:04 | Outpatient (REF) | payer BC, SELFPAY ==
--- OUTSIDE RECORDS SUMMARY | 2023-12-05 15:06 | XMS_ITS | Continuity of Care Document ---
Author Name Unknown Organization [facility] Address [address] [place] [address] Care Team Providers Care Test Tech Name Role Phone Joey Blanco Primary Care Physician Encounter [id number] Date(s): 11/08/22 - 11/08/[address] [id number] Discharge Disposition: Home or Self Care Attending Physician: Joey Grover MD Admitting Physician: Joey Grover MD Referring Physician: Joey Grover MD Allergies, Adverse Reactions, Alerts No Known Medication Allergies Immunizations Given and Recorded Vaccine Date Status Refusal Reason tetanus/diphth/pertuss (Tdap) adult/adol 05/21/20 Recorded Results Laboratory List Name Date Basic Metabolic Panel 11/08/22 Most recent to oldest [Reference Range]: 1 BUN [7-18 mg/dL] 7 mg/dL (11/08/22 2:31 PM) Glucose Level [74-106 mg/dL] 91 mg/dL (11/08/22 2:31 PM) Potassium Level [3.5-5.1 mmol/L] 4.0 mmo l/L (11/08/22 2:31 PM) Sodium Level [136-145 mmol/L] 139 mmol/L (11/08/22 2:31 PM) Calcium Level [8.5-10.1 mg/dL] 8.8 mg/dL (11/08/22 2:31 PM) CO2 [21-32 mmol/L] 24 mmol/L (11/08/22 2:31 PM) eGFR Non-AA [>=60] 92 (11/08/22 2:31 PM) eGFR AA [>=60] 92 (11/08/22 2:31 PM) Chloride Level [98-107 mmol/L] 106 mmol/ L (11/08/22 2:31 PM) Creatinine Level [0.55-1.02 mg/dL] 0.79 mg/dL (11/08/22 2:31 PM) Social History Social History Type Response Sex Female Patient Care team information Personnel Name: Joey Blanco MD Address: Address: [address] [address]- [place]
== END 2023-12-05 15:05 | disposition home or self-care (01) ==
LOC: NCHCN 15:04
PROVIDERS: PCP Internal Medicine; Visit Provider Physician Assistant
DX: R30.0 Dysuria (principal)
CPT/HCPCS: 87086

== ENCOUNTER 2024-05-04 09:24 | Outpatient (REF) | payer BC, SELFPAY ==
[2024-05-04 19:37] LABS: ALT 25 U/L (14-59); AST 16 U/L (15-37); Albumin 4.2 g/dL (3.4-5.0); Alkaline Phosphatase 87 U/L (46-116); Anion Gap 10.6 mmol/L (3-11); BUN 15 mg/dL (7-18); Bilirubin, Total 0.5 mg/dL (0.2-1.0); CO2 26.4 mmol/L (21.0-32.0); CREATININE 0.8 mg/dL (0.55-1.02); Calcium 9.3 mg/dL (8.5-10.1); Calculated LDL 166 mg/dL (<100); Chloride 103 mmol/L (98-107); Cholesterol 252 mg/dL (<200); Estimated GFR 89.71 (mL/min/1.73m2); Glucose 97 mg/dL (74-106); HDL Cholesterol 55 mg/dL (40-60); Potassium 4.1 mmol/L (3.5-5.1); Sodium 140 mmol/L (136-145); Total Protein 7.6 g/dL (6.4-8.2); Triglyceride 157 mg/dL (<150)
[2024-05-04 19:48] LABS: Hemoglobin A1C 5.4 % (<5.7)
== END 2024-05-04 09:25 | disposition home or self-care (01) ==
LOC: NCHCN 09:24
PROVIDERS: Physician Assistant; PCP Internal Medicine; Visit Provider Nurse Practitioner Family
DX: E66.8 Other obesity (principal); R79.89 Other specified abnormal findings of blood chemistry
CPT/HCPCS: 80053; 80061; 83036

== ENCOUNTER → 2024-05-11 04:40 | Outpatient (CLI) | payer BC, SELFPAY ==
--- NOTE | 2024-05-11 12:31 | DI.MAMMO_ITS ---
Exam(s) MAMMO SCREENING EXAM: MAMMO SCREENING CLINICAL HISTORY: SCREENING, Z12.31 TECHNIQUE: Mammograms were interpreted according to the usual protocol including computer analysis w [employer] CAD system, tomosynthesis and C-view imaging. COMPARISON: 2013 through 2021 FINDINGS: The breasts are composed of scattered fibroglandular densities, Breast Density category B. No suspicious masses or suspicious microcalcifications are seen. No skin thickening or abnormal axillary lymph nodes are seen. There has been no significant change from prior exams. IMPRESSION: BI-RADS Category 1, Negative mammogram Yearly screening mammography is recommended. Breast Density - Category B, scattered fibroglandular densities. A negative radiographic report should not delay biopsy if a dominant or clinically suspicious mass is present. Up to ten percent of cancers are not identified on mammography. A negative report may reinforce clinical impression. Adenosis and dense breasts may obscure an underlying neoplasm. False positive reports average 6 to 10%. Patient will receive a letter notifying them of these results.
== END ==
PROVIDERS: PCP Internal Medicine; Visit Provider Physician Assistant
DX: Z12.31 Encounter for screening mammogram for malignant neoplasm of breast (principal)
CPT/HCPCS: 77063; 77067